=== PATIENT | female | born 1960 | race Caucasian/White ===

== ENCOUNTER 2019-08-14 02:47 | Emergency (ER) | payer BC, OTHER ==
--- NOTE | 2019-08-14 03:26 | ED ---
Dizziness - HPI Summary HPI Summary: 58 year old F arriving via ambulance to [facility] complains of worsening dizziness described as room spinning and intermittent chest tightness since 0200 2019 after waking up from sleep to use the bathroom. Patient called 911. Patient reports bilateral toe tingliness and increased tremors x1 day. Patient states she has central tremor at baseline which has worsened since yesterday. Hx neuropathy. She states she has an appointment with neurology in August 2019. Patient denies fever, chills, cough, shortness of breath, nausea/vomiting/ diarrhea. Symptoms aggravated by nothing. Symptoms alleviated by nothing. Patient states she has had similar symptoms in the past but not as severe as now. Medications reviewed. Hx anxiety. Surgical hx reviewed. FHx reviewed. Admits to occasional ETOH use. No recreational drug or tobacco use. - History Of Current Complaint Chief Complaint: EDDizziness Stated Complaint: GENERAL ILLNESS PER EMS Time Seen by Provider: 08/14/19 03:01 Hx Obtained From: Patient Onset/Duration: Still Present Timing: Constant Aggravating Factor(s): Nothing Alleviating Factor(s): Nothing Associated Signs And Symptoms: Positive: Negative - fever, chills, cough, shortness of breath, nausea/vomiting/diarrhea, Other: - chest tightness, bilateral toe tingliness, increased tremors - Allergies/Home Medications Allergies/Adverse Reactions: Allergies Allergy/AdvReac Type Severity Reaction Status Date / Time No Known Allergies Allergy Verified 08/14/19 04:13 Home Medications: Home Medications Cholecalciferol (Vitamin D3) [Vitamin D-3] 2,000 unit PO DAILY 06/27/16 [ History Confirmed 08/14/19] Escitalopram Oxalate [Lexapro] 10 mg PO DAILY 06/27/16 [History Confirmed ] Calcium Carb,Gluc/Mag Ox,Gluc [Calcium Magnesium Caplet] 1 tab PO DAILY [History Confirmed 08/14/19] Dextroamphetamine/Amphetamine [Dextroamp-Amphetamin 10 mg Tab] 10 mg PO TID PRN 08/14/19 [History Confirmed 08/14/19] Rodessa-3 Fatty Acids/Fish Oil [Fish Oil 1,000 mg Softgel] 1 cap PO DAILY [History Confirmed 08/14/19] Propranolol HCl 10 mg PO DAILY PRN 08/14/19 [History Confirmed 08/14/19] Propranolol HCl [Propranolol HCl ER] 60 mg PO DAILY PRN 08/14/19 [History Confirmed 08/14/19] Vitamin B Complex TAB* [B Complex-50*] 1 tab PO DAILY 08/14/19 [History Confirmed 08/14/19] PMH/Surg Hx/FS Hx/Imm Hx GI History: Reports: Other GI Disorders - hep C Psychiatric History: Reports: Hx Anxiety, Hx Attention Deficit Hyperactivity Disorder - Cancer History Cancer Type, Location and Year: breast CA Hx Chemotherapy: Yes - 06/07 BREAST- 11/06 Hx Radiation Therapy: Yes - 12/07, 6 WEEKS, ENDED 01/06 - Surgical History Surgery Procedure, Year, and Place: vaginal sling. C-sections. lumpectomy 2014 Infectious Disease History: No Infectious Disease History: Denies: Traveled Outside the [place] in Last 30 Days - Family History Known Family History: Positive: Other - breast CA, anxiety - Social History Alcohol Use: Occasionally Hx Substance Use: Yes Substance Use Type: Reports: Excessive Caffeine Hx Tobacco Use: No Smoking Status (MU): Never Smoked Tobacco - Additional Comments History Additional Comments: Hx anxiety, neuropathy, baseline central tremor Review of Systems - ROS Summary Review of Systems Summary: Home Medications Medication Instructions Recorded Confirmed Type Cholecalciferol (Vitamin D3) 2,000 unit PO DAILY 06/27/16 06/27/16 History [Vitamin D-3] Escitalopram Oxalate [Lexapro] 10 mg PO DAILY 06/27/16 06/27/16 History Calcium Carb,Gluc/Mag Ox,Gluc 1 tab PO DAILY 08/14/19 08/14/19 History [Calcium Magnesium Caplet] Dextroamphetamine/Amphetamine 10 mg PO TID PRN 08/14/19 08/14/19 History [Dextroamp-Amphetamin 10 mg Tab] Rodessa-3 Fatty Acids/Fish Oil [Fish 1 cap PO DAILY 08/14/19 08/14/19 History Oil 1,000 mg Softgel] Propranolol HCl 10 mg PO DAILY PRN 08/14/19 08/14/19 History Propranolol HCl [Propranolol HCl 60 mg PO DAILY PRN 08/14/19 08/14/19 History ER] Vitamin B Complex TAB* [B 1 tab PO DAILY 08/14/19 08/14/19 History Complex-50*] Negative: Fever, Chills Positive: Other - chest tightness Negative: Shortness Of Breath, Cough Negative: Vomiting, Diarrhea, Nausea Neurological/Mental Status: Other - dizziness All Other Systems Reviewed And Are Negative: Yes Physical Exam - Summary Physical Exam Summary: General: Well-developed, Well-nourished FEMALE. No acute distress. She is moderately anxious appearing. HEENT: Normocephalic, Atraumatic. Eyes: Conjuctiva normal, PERRL. Oropharynx: Clear, mucous membranes moist, (-) exudates. Neck: Soft, FROM, (-) lymphadenopathy, (-) thyromegaly, (-) JVD. Cardiovascular: Normal sinus rhythm, (-) murmur. Lungs: Clear to auscultation bilaterally (-) wheezes, (-) rales, (-) rhonchi. Abdomen: Soft, non-tender, non-distended, (-) organomegaly, normal bowel sounds. Back: (-) CVA tenderness Extremities: No edema. Skin: Warm, dry, (-) rash. Neuro: Alert and oriented x3. Mild essential tremor. Unable to tolerate Alligator Hallpike test. No ataxia. No gait disturbance. No sensory deficit. Normal strength, normal sensation. Psychiatric: Mood normal, affect normal. Triage Information Reviewed: Yes Vital Signs On Initial Exam: Initial Vitals Temp Pulse Resp BP Pulse Ox 97.9 F 77 14 126/80 99 08/14/19 02:56 08/14/19 02:56 08/14/19 02:56 08/14/19 02:56 08/14/19 02:56 Vital Signs Reviewed: Yes Procedures - Sedation Patient Received Moderate/Deep Sedation with Procedure: No Diagnostics - Vital Signs Vital Signs Temp Pulse Resp BP Pulse Ox 08/14/19 02:56 97.9 F 77 14 126/80 99 - Laboratory Result Diagrams: 08/14/19 04:00 08/14/19 04:00 Lab Statement: Any lab studies that have been ordered have been reviewed, and results considered in the medical decision making process. - EKG 0336 Cardiac Rate: NL - 72 BPM EKG Rhythm: Sinus Rhythm Summary of EKG Findings: EKG at 0336 reveals normal sinus rhythm with rate of 72 BPM, no acute changes, no ischemic changes. No previous EKG to compare. This EKG was reviewed and interpreted by Dr. Santana. Re-Evaluation - Re-Evaluation First Eval Re-Evaluation Time: 06:01 Comment: I have discussed results with the patient and her symptoms have improved. Discussed symptoms that warrant immediate return to ED. Dizzy Course/Dx - Course Course Of Treatment: 58-year-old female presents from home with dizziness. Patient states she awoke from sleep with severe dizziness. She became quite alarmed. Sounds like she had some accompanying anxiety. Talks about having tingling and numbness in her feet and hands. She also states she's had worsening of her essential tremor yesterday. She takes when necessary beta ton for that.over the last week she accounts taking much more than her usual amount of beta ton. Patient denies any fevers or chills. Denies any chest pain or shortness of breath. No cough. No visual changes. No headache. Patient is moving her head quite freely telling history. She states some of her symptoms have improved already. On physical exam she has no significant abnormal findings. Workup is essentially negative. Discussed at length with patient. Denies plenty of fluids and rest. Decrease beta ton to her usual amount over the next few days. Gradually increase if appropriate. Follow-up with PCP. Follow-up sooner for any worsening symptoms. Patient also she has a follow-up with her neurologist soon. - Diagnoses Provider Diagnoses: Dizziness Discharge ED - Sign-Out/Discharge Documenting (check all that apply): Patient Departure - Discharge Plan Condition: Stable Disposition: HOME Patient Education Materials: Dizziness (ED) Referrals: Oli Zambrano MD [Primary Care Provider] - 3 Days Additional Instructions: Please follow up with your primary care physician within 3 days. Please return to Emergency Department for any new or worsening symptoms. - Billing Disposition and Condition Condition: STABLE Disposition: Home - Attestation Statements Document Initiated by Scribe: Yes Documenting Scribe: Queenie Pina Provider For Whom Siddharth is Documenting (Include Credential): Latanya Santana MD Scribe Attestation: Queenie Garcia, scribed for Latanya Santana MD on 08/14/19 at 0613. Scribe Documentation Reviewed: Yes Provider Attestation: The documentation as recorded by the Queenie ford accurately reflects the service I personally performed and the decisions made by me, Latanya Santana MD Status of Scribe Document: Viewed
[2019-08-14 04:08] LABS: Urine Appearance Cloudy; Urine Bilirubin Negative (Negative); Urine Blood Negative (Negative); Urine Color Yellow; Urine Glucose Negative (Negative); Urine Ketones Negative (Negative); Urine Nitrite Negative (Negative); Urine Protein Negative (Negative); Urine Specific Gravity 1.003 (1.010-1.030); Urine Urobilinogen Negative (Negative)
[2019-08-14 04:11] LABS: Urine Bacteria Absent (Absent); Urine Red Blood Cell Trace(0-2/hpf) (Absent); Urine Squamous Epithelial Cell Present (Absent); Urine White Blood Cell Trace(0-5/hpf) (Absent)
[2019-08-14 04:16] LABS: ABS Eosinophils 0.1 10^3/ul (0-0.6); ABS Lymphocytes 1.1 10^3/ul (1.0-4.8); ABS Monocytes 0.3 10^3/ul (0-0.8); ABS Neutrophils 4.3 10^3/ul (1.5-7.7); Eosinophil % 1.5 %; Hematocrit 36 % (35-47); Hemoglobin 12.4 g/dL (12.0-16.0); Lymphocyte % 19.4 %; Mean Corpuscular HGB Conc 34 g/dL (31-36); Mean Corpuscular Hemoglobin 33 pg (27-31); Mean Corpuscular Volume 97 fL (80-97); Platelet Count 235 10^3/uL (150-450); Red Blood Count 3.72 10^6 /uL (3.70-4.87); Red Cell Distribution Width 12 % (10-15); White Blood Count 5.8 10^3/uL (3.5-10.8)
[2019-08-14 04:19] LABS: INR 0.85 (0.82-1.09)
[2019-08-14 04:27] LABS: Albumin 4.3 g/dL (3.2-5.2); CO2 Carbon Dioxide 28 mmol/L (22-32); Calcium 9.7 mg/dL (8.6-10.3); Chloride 106 mmol/L (101-111); Magnesium 2.1 mg/dL (1.9-2.7); Sodium 138 mmol/L (135-145)
[2019-08-14 04:33] LABS: ALT 43 U/L (7-52); Albumin/Globulin Ratio 1.5 (1-3); Alkaline Phosphatase 74 U/L (34-104); BUN/Creatinine Ratio 18.9 (8-20); Blood Urea Nitrogen 17 mg/dL (6-24); EGFR African American 77.8 (>60); EGFR Non-African American 64.3 (>60); Globulin 2.8 g/dL (2-4); Glucose 108 mg/dL (70-100); Total Protein 7.1 g/dL (6.4-8.9)
[2019-08-14 05:08] LABS: Alcohol < 10 mg/dL (<10)
[2019-08-14 05:17] LABS: Anion Gap 4 mmol/L (2-11); Potassium 4.2 mmol/L (3.5-5.0)
[2019-08-14 05:19] LABS: TSH (Thyroid Stimulating Horm) 6.38 mcIU/mL (0.34-5.60)
[2019-08-14 05:24] LABS: AST 39 U/L (13-39)
[2019-08-14 06:11] VITALS: BP 96/57
== END 2019-08-14 06:15 | disposition home or self-care (01) ==
LOC: ED 02:47
DX: R42 Dizziness and giddiness (principal); F41.9 Anxiety disorder, unspecified; F90.9 Attention-deficit hyperactivity disorder, unspecified type; Z86.19 Personal history of other infectious and parasitic diseases; Z79.899 Other long term (current) drug therapy
CPT/HCPCS: 36415; 80053; 80320; 81003; 81015; 83605; 83735; 83880; 84443; 84484; 85025; 85610; 87086; 93005; 99284; G0480